=== PATIENT | female | born 1980 | race Caucasian/White ===

== ENCOUNTER 2021-10-07 12:47 | Emergency (ER) | payer MEDICARE, SELFPAY ==
--- NOTE | ~2021-10-07 | CT_ITS ---
EXAMINATION: CT abdomen pelvis w con DATE: 10/07/2021 14:59 INDICATION: LUQ pain TECHNIQUE: Computed tomography (CT) of the abdomen and pelvis was performed with 75 mL Omnipaque 300 intravenous contrast. Automated exposure control and iterative reconstruction technique were employed . The dose-length product was 876.47 mGy-cm. COMPARISON: None FINDINGS: Lower thorax: Unremarkable Liver: Normal. Biliary/Gallbladder: Gallbladder is normal. No bile duct dilation. Pancreas: No mass or duct dilation. Spleen: Normal. Adrenals:No mass. Kidneys: No mass, stone, or hydronephrosis. GI tract: No small or large bowel dilation. Normal appendix. Mesentery/Peritoneum: No ascites, mass, or free air. Retroperitoneum: No mass. Pelvis: Pelvic organs are within normal limits. Soft Tissues: Soft tissues and body wall unremarkable. Bones: No acute osseous finding. IMPRESSION: No acute abdominopelvic process. Reviewed, dictated and finalized at location K.
--- NOTE | ~2021-10-07 | XR_ITS ---
EXAMINATION: XR chest 2V 10/07/2021 13:41 INDICATION: Chest pain PROCEDURE: 2 view chest COMPARISON: No prior studies for comparison. FINDINGS: The lungs are clear. The cardiomediastinal silhouette is within normal limits. There are no pleural effusions. There is no pneumothorax suspected. IMPRESSION: 1: NO ACUTE CARDIOPULMONARY DISEASE. Reviewed, dictated and finalized at location A.
[2021-10-07 12:49] VITALS: BP 130/87; PULSE 88; RESP 18; TEMP 36.2; O2SAT 99
--- NOTE | 2021-10-07 12:49 | ECG_ITS ---
Measurements Intervals [place] Rate: 73 P: 49 [place]: 167 QRS: 0 QRSD: 84 T: 22 QT: 383 QTc: 423 Interpretive Statements SINUS RHYTHM LOW QRS VOLTAGE IN PRECORDIAL LEADS BORDERLINE R WAVE PROGRESSION, ANTERIOR LEADS BORDERLINE ECG Electronically Signed On 10-07-2021 13:06:50 CDT by Eliot Lynne D.O.
[2021-10-07 13:12] LABS: Basophils Percent Auto 0.1 % (0.2-1.2); Eosinophils Absolute Auto 0.1 K/mm3 (0-0.3); Eosinophils Percent Auto 1.7 % (0-4.4); Hematocrit 38.9 % (37.0-47.0); Hemoglobin 13.2 g/dL (12.0-15.0); Immature Granulocyte Absolute 0.01 K/mm3 (0.00-0.031); Immature Granulocyte Percent A 0.1 % (0-0.5); Lymphocytes Absolute Auto 1.85 K/mm3 (0.9-3.2); Lymphocytes Percent Auto 26.4 % (18.3-44.2); Mean Corpuscular HGB Conc 33.9 g/dl (32-36); Mean Corpuscular Hemoglobin 31.1 pg (26-34); Mean Corpuscular Volume 91.5 fl (80-100); Mean Platelet Volume 11.5 fl (7.4-10.4); Monocytes Absolute Auto 0.4 K/mm3 (0.1-0.6); Monocytes Percent Auto 6.3 % (2.6-8.5); Neutrophils Absolute Auto 4.6 K/mm3 (1.3-6.7); Neutrophils Percent Auto 65.4 % (45.5-73.1); Platelet Count Result 186 k/mm3 (150-375); Red Blood Count 4.25 M/mm3 (4.2-5.4)
[2021-10-07 13:21] LABS: Alanine Aminotransferase 77 U/L (6-35); Albumin Level 4.3 g/dL (3.5-5.1); Alkaline Phosphatase 74 U/L (38-126); Anion Gap -2 mmol/L (8-16); Aspartate Amino Transferase 64 U/L (14-36); Bilirubin,Total 0.3 mg/dL (0.2-1.3); Blood Urea Nitrogen 13 mg/dL (7-17); Carbon Dioxide 37 mmol/L (22-30); Chloride 102 mmol/L (98-107); Estimated CRCL calculation 101 ml/min; Estimated Glomerular Filt Rate > 60; Glucose 96 mg/dL (65-110); Lipase 85 U/L (23-300); Potassium 4.2 mmol/L (3.4-5.0); Sodium 137 mmol/L (137-145)
[2021-10-07 13:27] LABS: Partial Thromboplastin Time 26.2 SECONDS (22.3-36.8); Prothrombin Time 12.9 Seconds (11.1-14.7)
[2021-10-07 13:33] LABS: Troponin I < 0.012 ng/mL (0.000-0.034)
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
[2021-10-07 14:34] VITALS: BP 121/88; PULSE 68; PULSE 69; RESP 18; O2SAT 99
[2021-10-07] MEDS: PANTOPRAZOLE SODIUM IV 40 MG VIAL IV PUSH (14:35)
[2021-10-07] MEDS: SODIUM CHLORIDE 0.9% IV 1,000 ML 999 ML IV CONT (14:36)
[2021-10-07] MEDS: BELLADONNA ALK/PHENOB ELIX 10 ML, MAG HYDROX/ALUMINUM HYD/SIMETH 30 ML, LIDOCAINE HCL 2... PO (14:36)
[2021-10-07 14:44] LABS: D Dimer 0.29 ug/mL (<0.48)
[2021-10-07 15:41] VITALS: BP 118/73; PULSE 60; RESP 19; O2SAT 97
== END 2021-10-07 15:42 | disposition home or self-care (01) ==
PROVIDERS: Emergency Medicine; Emergency Provider Nurse Practitioner Family; PCP Physician Assistant
DX: M25.512 Pain in left shoulder (principal); K21.9 Gastro-esophageal reflux disease without esophagitis; R07.9 Chest pain, unspecified; R94.31 Abnormal electrocardiogram [ECG] [EKG]
CPT/HCPCS: 36415; 71046; 74177; 80053; 81025; 83690; 84443; 84484; 85025; 85380; 85610; 85730; 93005; 96361; 96374; 99284; A9270; C9113; J7030; Q9967

== ENCOUNTER 2022-02-11 15:16 | Emergency (ER) | payer MEDICARE, SELFPAY ==
[2022-02-11] VITALS (35 sets, daily range): BP systolic 96–124; BP diastolic 61–98; PULSE 62–82; RESP 9–28; TEMP 36.8; O2SAT 97–100
--- NOTE | ~2022-02-11 | XR_ITS ---
EXAMINATION: XR chest 2V 02/11/2022 15:47 INDICATION: Shortness of breath and chest pain PROCEDURE: 2 view chest COMPARISON: 10/07/2021 FINDINGS: The lungs are clear. The cardiomediastinal silhouette is within normal limits. There are no pleural effusions. There is no pneumothorax suspected. IMPRESSION: 1: NO ACUTE CARDIOPULMONARY DISEASE. Reviewed, dictated and finalized at location B.
--- NOTE | ~2022-02-11 | CT_ITS ---
EXAMINATION: CTA chest PE protocol DATE: 02/11/2022 17:51 INDICATION: Dyspnea. Positive d-dimer. TECHNIQUE: Computed tomography (CT) pulmonary angiogram of the chest was performed with 100 mL Omnipa que-350 intravenous contrast. Additional 3D reconstructions utilizing coronal maximum intensity proje ction (MIP) were performed. Automated exposure control and iterative reconstruction technique were em ployed. The dose-length product was 623.16 mGy-cm. COMPARISON: None FINDINGS: Excellent contrast opacification of the pulmonary arteries. There is mild streak artifact from dense contrast in the superior vena cava and right atrium. No significant motion artifact yielding diagnost ic quality study which demonstrates no pulmonary embolism. No pneumonia, pulmonary edema, pleural eff usion or pneumothorax. Heart size is normal. No pericardial effusion. Thoracic aorta is normal in heath iber with no dissection. No pathologically enlarged thoracic lymphadenopathy. There is some stranding and small amount of nonloculated peripancreatic fluid around body and tail the pancreas consistent w ith acute interstitial pancreatitis. Bones are unremarkable. IMPRESSION: 1. No pulmonary embolism or other acute cardiopulmonary disease. 2. Small amount of peripancreatic fluid and stranding consistent with acute interstitial pancreatitis . Correlate with amylase and lipase levels. Reviewed, dictated and finalized at location A. IMPRESSION: 1. No pulmonary embolism or other acute cardiopulmonary disease. 2. Small amount of peripancreatic fluid and stranding consistent with acute int erstitial pancreatitis. Correlate with amylase and lipase levels.
--- NOTE | 2022-02-11 15:26 | ECG_ITS ---
Rate 72 [place] 146 QRSd 81 QT 375 QTc 412 --[place]-- P 37 QRS 3 T 32 SINUS RHYTHM NORMAL ECG COMPARED TO ECG 10/07/2021 12:51:51 NO SIGNIFICANT CHANGES Electronically Signed On 02-13-2022 8:10:19 CDT by Eliot STONE
[2022-02-11 15:56] LABS: Basophils Absolute Auto 0.1 K/mm3 (0.0-0.1); Basophils Percent Auto 0.5 % (0.2-1.2); Eosinophils Absolute Auto 0.2 K/mm3 (0-0.3); Eosinophils Percent Auto 1.5 % (0-4.4); Hemoglobin 13.8 g/dL (12.0-15.0); Immature Granulocyte Absolute 0.29 K/mm3 (0.00-0.031); Immature Granulocyte Percent A 2.8 % (0-0.5); Lymphocytes Absolute Auto 4.06 K/mm3 (0.9-3.2); Lymphocytes Percent Auto 39.7 % (18.3-44.2); Mean Corpuscular HGB Conc 32.9 g/dl (32-36); Mean Corpuscular Hemoglobin 30.5 pg (26-34); Mean Corpuscular Volume 92.7 fl (80-100); Mean Platelet Volume 10.5 fl (7.4-10.4); Monocytes Absolute Auto 0.9 K/mm3 (0.1-0.6); Monocytes Percent Auto 8.5 % (2.6-8.5); Neutrophils Absolute Auto 4.8 K/mm3 (1.3-6.7); Platelet Count Result 244 k/mm3 (150-375); Red Blood Count 4.53 M/mm3 (4.2-5.4); Red Cell Distribution Width 13.5 % (11.5-14.5); White Blood Count 10.2 K/mm3 (4.5-10.0)
[2022-02-11 16:02] LABS: Alanine Aminotransferase 23 U/L (6-35); Alkaline Phosphatase 60 U/L (38-126); Anion Gap 11 mmol/L (8-16); Aspartate Amino Transferase 15 U/L (14-36); Bilirubin,Total 0.2 mg/dL (0.2-1.3); Blood Urea Nitrogen 25 mg/dL (7-17); Calcium 9.1 mg/dL (8.4-10.2); Carbon Dioxide 26 mmol/L (22-30); Chloride 102 mmol/L (98-107); Estimated Glomerular Filt Rate > 60; Glucose 76 mg/dL (65-110); Potassium 3.9 mmol/L (3.4-5.0); Sodium 139 mmol/L (137-145)
[2022-02-11] MEDS: KETOROLAC 30 MG/ML VIAL (*BKC) IV PUSH (16:05)
[2022-02-11] MEDS: FAMOTIDINE 20 MG/2 ML VIAL IV PUSH (16:06)
[2022-02-11] MEDS: SODIUM CHLORIDE 0.9% IV 1,000 ML 999 ML IV CONT ×2 (16:07→17:50)
[2022-02-11 16:16] LABS: Appearance Urine Slightly Cloudy (Clear); Bilirubin Urine Negative (Negative); Blood Urine Negative (Negative); Color Urine Yellow (Yellow); Glucose Urine UA Negative (Negative); Ketones Urine Negative (Negative); Leukocyte Esterase Ur Trace LEU/UL (Negative); Nitrate Urine Negative (Negative); Protein Urine Negative (Negative); Specific Grav Ur 1.025 (1.001-1.035); Urobilinogen Urine 0.2 mg/dL (<2.0)
[2022-02-11 16:28] LABS: Bacteria Urine Trace /hpf; Mucus Urine Rare /lpf; Squamous Epithelial Cell Urine Many /hpf (Few)
[2022-02-11 16:31] LABS: Add Urine Microscopic? YES
[2022-02-11 16:33] LABS: Partial Thromboplastin Time 21.2 SECONDS (22.3-36.8); Prothrombin Time 12.3 Seconds (11.1-14.7)
[2022-02-11 16:34] LABS: Lipase 122 U/L (23-300)
[2022-02-11 16:52] LABS: Troponin I < 0.012 ng/mL (0.000-0.034)
[2022-02-11 17:26] LABS: D Dimer 1.29 ug/mL (<0.48)
[2022-02-11] MEDS: LORazepam INJ (*CRX) 2 MG/ML VIAL 0.5 MG IV PUSH (18:10)
--- NOTE | 2022-02-11 18:44 | ED.GENADULT ---
HPI - General Adult General Chief complaint: Unspecified Stated complaint: there's something wrong Time Seen by Provider: 02/11/22 15:52 Source: RN notes reviewed History of Present Illness HPI narrative: Patient presents emergency department from home for multiple complaints. Patient states that she has been feeling generally weak as well as a feeling of short of breath. She states that with this she feels swollen throughout her body as well as like her it has been swollen she states that he was recently diagnosed with COVID-19 and just finished a course of Paxlovid dexamethasone yesterday she denies any fevers or chills she denies any chest pain she denies any abdominal pain but does states that she easily feels full and has some nausea she denies any vomiting or diarrhea Related Data Home Medications Medication Instructions Recorded Confirmed hydroxyzine HCl 10 mg tablet mg 02/11/22 Allergies Allergy/AdvReac Type Severity Reaction Status Date / Time No Known Allergies Allergy Verified 02/11/22 15:57 Review of Systems Review of Systems: Gen.: Denies fevers or chills Eyes: Denies eye pain or visual change ENT see HPI Respiratory: Reports shortness of breath CV: Denies chest pain or palpitation GI: Denies abdominal pain or diarrhea reports nausea Musculoskeletal: Denies back pain or muscle pain Neuro: Denies numbness, tingling, weakness or focal weakness Skin: Denies rash Except as documented, all other systems reviewed and negative PMF Past Medical History Medical History Anus irritation Hematochezia Hx of anxiety disorder Hx of diabetes mellitus Hx of gastroesophageal reflux (GERD) Hx of iron deficiency anemia Sensation of gaseous abdominal fullness Social History Social History Smoking packs per day: 1 Smoking cigarettes per day: 20.0 Years smoked: 27 Smoking pack-years: 27.00 Smoking status: Current every day smoker Tobacco type: cigarettes Alcohol intake: never Substance use: never Substance use type: does not use Spiritual care concerns: No Exam Narrative: APPEARANCE: No acute distress, nontoxic, resting in bed EYES: EOMI HEENT: Normocephalic, atraumatic, OMM no erythema or exudate posterior pharynx uvula midline no trismus tolerating own secretions voice normal RESPIRATORY: No respiratory distress Clear to auscultation bilaterally with no rhonchi wheezing or rales. CARDIOVASCULAR: Regular rate and rhythm without murmurs rubs or gallops. ABDOMINAL: Soft, nontender, nondistended, no rebound or guarding MUSCULOSKELETAl: Moves all extremities. No clubbing, cyanosis or edema. NEURO: Awake and alert x 4. Following commands, speech normal, no focal deficits SKIN:: Warm, dry. No rashes lesions or abrasions PSYCHIATRIC: Anxious in appearance normal affect/mood, Course Course Emergency Course: Following CT scan reevaluated the patient lipase and hepatic function panels within normal limits the abdomen is soft and nontender no tenderness epigastric region Discussed with Dr. Chappell presentation work-up at this time he feels that the patient may be discharged with antiemetics and follow-up in the office Discussed with patient results of workup and diagnosis. Discussed need for follow-up with primary care, proper use of medication, and reasons to return to the emergency department. Patient understands and agrees to current treatment plan Vital Signs Vital signs: Vital Signs Temperature 98.3 F 02/11/22 15:20 Pulse Rate 82 02/11/22 15:20 Respiratory Rate 16 02/11/22 15:20 Blood Pressure 108/75 02/11/22 15:20 Pulse Oximetry 100 02/11/22 15:20 Oxygen Delivery Room Air 02/11/22 15:20 Temperature 98.3 F 02/11/22 15:20 Pulse Rate 65 02/11/22 18:11 Respiratory Rate 15 02/11/22 18:11 Blood Pressure 124/80 02/11/22 18:11 Pulse Oximetry 100
[2022-02-11] MEDS: NITROFURANTOIN MONOHYD MACROCR 100 MG CAP PO (19:08)
--- NOTE | 2022-02-11 19:14 | PC.NURSE ---
Patient report received from ROBYN Hanna. All questions answered and care of patient assumed.
== END 2022-02-11 19:24 | disposition home or self-care (01) ==
PROVIDERS: Emergency Provider Emergency Medicine; PCP Physician Assistant
DX: R06.00 Dyspnea, unspecified (principal); N39.0 Urinary tract infection, site not specified; F41.9 Anxiety disorder, unspecified; R06.02 Shortness of breath; F17.210 Nicotine dependence, cigarettes, uncomplicated; E11.9 Type 2 diabetes mellitus without complications; K21.9 Gastro-esophageal reflux disease without esophagitis
CPT/HCPCS: 36415; 71046; 71275; 80053; 81001; 81025; 83690; 83735; 84484; 85025; 85380; 85610; 85730; 93005; 96361; 96374; 96375; 99284; A9270; J1885; J2060; J7030; Q9967

== ENCOUNTER 2022-03-31 00:39 | Day surgery (SDC) | payer MEDICARE, SELFPAY ==
[2022-01-27 10:49] VITALS: BMI 34.5
--- NOTE | 2022-02-13 10:11 | SUR.PREOP ---
Multiple messages left- patient did not answer phone call.
[2022-03-20 14:35] VITALS: BMI 34.5
[2022-03-31 12:24] VITALS: BP 126/78; PULSE 105; RESP 16; TEMP 36.3; O2SAT 100
[2022-03-31] MEDS: LACTATED RINGERS 1,000 ML 150 ML IV CONT (12:34)
--- NOTE | 2022-03-31 12:45 | WPDANESEPPF ---
Anes - Initial Pre Proc Eval Procedure: Operation Date: 03/31/22 13:30 Proposed Procedures p Esophagogastroduodenoscopy & Colonoscopy - Dallin Funes MD Date/Time: 03/31/22 12:45 Surgeon: Dallin Funes MD Pre Op Diagnosis: melena, GERD Patient Data Age: 42 Gender: F Height: 1.7 m Weight: 96 kg Last Vital Signs Temp 97.3 F L 03/31/22 12:24 Pulse 105 H 03/31/22 12:24 Resp 16 03/31/22 12:24 BP 126/78 03/31/22 12:24 Pulse Ox 100 03/31/22 12:24 O2 Del Method Room Air 03/31/22 12:24 Allergies Allergy/AdvReac Type Severity Reaction Status Date / Time No Known Allergies Allergy Verified 03/31/22 12:22 Home Medications Medication Instructions Recorded Confirmed Type hydroxyzine HCl 10 mg tablet 10 mg PO PRN PRN Anxiety 02/11/22 03/31/22 History ondansetron 4 mg disintegrating 4 mg PO Q6H PRN nausea and 02/11/22 03/31/22 Rx tablet vomiting #10 tabs Patient hx anesthesia problems: none Family hx anesthesia problems: none Results Review: All pre-operative results and documents have been reviewed as part of the pre-operative evaluation. [facility] Past Medical History Medical History Anus irritation Hematochezia Hx of anxiety disorder Hx of diabetes mellitus Hx of gastroesophageal reflux (GERD) Hx of iron deficiency anemia Sensation of gaseous abdominal fullness Social History Social History Smoking packs per day: 1 Smoking cigarettes per day: 20.0 Years smoked: 27 Smoking pack-years: 27.00 Smoking status: Current every day smoker Tobacco type: cigarettes Alcohol intake: never Substance use: never Substance use type: does not use Living arrangements: with family Anes - Eval Final PreProcedure Day of Procedure 03/31/22 12:45 Patient weight: obese Heart: regular rate and rhythm Lungs: clear to auscultation Airway: Mallampati scale class II Neurological: alert and oriented Last oral intake: >/= 8 hours ASA classification: II Emergent: no Anesthetic plan: proceed Anesthesia type and monitoring: general GIVS and standard monitoring Results Review: All pre-operative results and documents have been reviewed as part of the pre-operative evaluation. Informed Consent: The patient's anesthetic plan and its attendant risks and benefits were discussed with the patient/family/POA. Questions were solicited and answers provided to the satisfaction of the patient/family/POA.
--- NOTE | 2022-03-31 12:52 | PM.HPGS ---
History of Present Illness History of Present Illness Consent: Risks, benefits, and alternatives have been discussed and questions answered. Patient agrees to proceed with procedure. Chief complaint: melena, GERD Narrative: Evie Munson is a 42 year old female with intermittent non cardiac CP when she came to see me at the office but now doing ok, also same sensation of lump in anus Review of Systems Constitutional: Constitutional: Denies headache(s) and Denies weakness Eyes: Eyes: Denies blurry vision ENT: Reports Normal hearing present, Denies headache(s) and Denies neck pain Cardiovascular: Cardiovascular: Denies chest pain and Denies dyspnea Respiratory: Respiratory: Denies dyspnea Gastrointestinal: Gastrointestinal: Reports no additional gastrointestinal complaints Genitourinary: Genitourinary: Denies dysuria Musculoskeletal: Musculoskeletal: Denies neck pain Integumentary/Breasts: Skin/Breast: Denies dry skin Neurologic: Reports Normal hearing present, Denies headache(s) and Denies weakness Psychiatric: Psychiatric: Denies anxiety Endocrine: Endocrine: Denies change in body appearance Hematologic/Lymphatic: Hematologic/Lymphatic: Denies easy bleeding Allergic/Immunologic: Allergic/Immunologic: Denies urticaria PMFSH Past Medical History Medical History (Updated 03/31/22 @ 12:52 by Dallin Funes MD) Anus irritation Hematochezia Hx of anxiety disorder Hx of diabetes mellitus Hx of gastroesophageal reflux (GERD) Hx of iron deficiency anemia Non-cardiac chest pain Sensation of gaseous abdominal fullness Social History Social History Smoking packs per day: 1 Smoking cigarettes per day: 20.0 Years smoked: 27 Smoking pack-years: 27.00 Smoking status: Current every day smoker Tobacco type: cigarettes Alcohol intake: never Substance use: never Substance use type: does not use Living arrangements: with family Meds Home Medications and Allergies Home Medications Medication Instructions Recorded Confirmed Type hydroxyzine HCl 10 mg tablet 10 mg PO PRN PRN Anxiety 02/11/22 03/31/22 History ondansetron 4 mg disintegrating 4 mg PO Q6H PRN nausea and 02/11/22 03/31/22 Rx tablet vomiting #10 tabs Allergies Allergy/AdvReac Type Severity Reaction Status Date / Time No Known Allergies Allergy Verified 03/31/22 12:22 Vital Signs Vital Signs - 24 hr 03/31/22 12:24 Temperature 97.3 F L Pulse Rate 105 H Respiratory Rate 16 Blood Pressure 126/78 Pulse Oximetry 100 Oxygen Delivery Room Air Exam Const: General: comfortable and no acute distress HENMT: Face/Nose/Sinus: Normal nares present Eyes: General: appearance normal, both eyes and all related structures Neck: Neck: no JVD Resp: Auscultation: clear to auscultation bilaterally Cardio: Rate: regular rate Rhythm: regular rhythm GI: Inspection: non-distended GI Palp: Yes Soft to palpation Skin: General skin exam: normal color Neuro: General: gait normal Speech: normal speech Extrem: General: normal to inspection Psych: Mental Status: mental status grossly normal Assessment and Plan Assessment and plan (1) Anus irritation: Code(s): K62.89 - Other specified diseases of anus and rectum Status: Acute Assessment and Plan: colonoscopy (2) Non-cardiac chest pain: Code(s): R07.89 - Other chest pain Status: Acute Assessment and Plan: egd with bx
[2022-03-31 13:14] VITALS: BP 106/68; PULSE 85; RESP 22; O2SAT 99
--- NOTE | 2022-03-31 13:17 | SUR.OPER ---
EGD START 1256, END 1259 COLONOSCOPY START 1304, END 1313
[2022-03-31 13:24] VITALS: BP 96/56; PULSE 71; RESP 18; O2SAT 98
[2022-03-31 13:34] VITALS: BP 98/69; PULSE 78; RESP 25; O2SAT 100
== END 2022-03-31 13:53 | disposition home or self-care (01) ==
PROVIDERS: PCP Physician Assistant; Visit Provider Internal Medicine Gastroenterology
PROC: 0DJ08ZZ Inspection of Upper Intestinal Tract, Via Natural or Artificial Opening Endoscopic (ICD-10-PCS; CPT 43235; principal; 2022-03-31 13:30)
DX: K62.89 Other specified diseases of anus and rectum (principal); R14.3 Flatulence; K64.8 Other hemorrhoids; K64.4 Residual hemorrhoidal skin tags; R07.89 Other chest pain; F17.210 Nicotine dependence, cigarettes, uncomplicated; E66.9 Obesity, unspecified; Z68.33 Body mass index [BMI] 33.0-33.9, adult
CPT/HCPCS: 45378; 43239; 88305; J2704; J7120

== ENCOUNTER 2024-07-29 11:33 | Emergency (ER) | payer MEDICARE, SELFPAY ==
--- NOTE | ~2024-07-29 | CT_ITS ---
EXAMINATION: CTA chest PE abdomen pel DATE: 07/29/2024 17:16 INDICATION: co, back pain, abd pain, vomiting TECHNIQUE: Computed tomography angiography (CTA) of the chest was performed with 100 mL Omnipaque-350 intravenous contrast timed to evaluate the pulmonary arteries, followed by portal venous phase imagi ng of the abdomen and pelvis. Coronal maximum intensity projection 3D-reconstructions were created by the technologist. The dose-length product (DLP) was 911.89 mGy-cm. Automated exposure control and it erative reconstruction technique were employed. COMPARISON: CTPA 02/11/2022, CT abdomen pelvis 10/07/2021. FINDINGS: CHEST: Lung parenchyma and airways: Clear. Pleura: Unremarkable. Thoracic inlet, axillae and chest wall: No thyroid or soft tissue mass. Thoracic aorta: No significant dilation. No dissection. Mediastinum: Normal. Heart and pericardium: Normal. Coronary artery calcifications: Absent. Thoracic bones: No acute osseous finding. Pulmonary arteries: Study quality: Mild motion artifact. Borderline contrast bolus (222HU), overall d iagnostic. No pulmonary emboli detected. ABDOMEN/PELVIS: Liver: Normal. Biliary/Gallbladder: Gallbladder is normal. No bile duct dilation. Pancreas: No mass or duct dilation. Spleen: Normal. Adrenals:No mass. Kidneys: No suspicious mass, obstructing stone, or hydronephrosis. GI tract: Mild distal esophageal and antral wall edema. No small or large bowel dilation. Normal appe ndix. Mesentery/Peritoneum: No ascites, mass, or free air. Retroperitoneum: No mass. Pelvis: Pelvic organs are within normal limits. Soft Tissues: Soft tissues and body wall unremarkable. Abdominopelvic bones: No acute osseous finding. IMPRESSION: No CT evidence of acute pulmonary embolus. No acute process detected in the chest. Mild esophagitis and antral gastritis. Reviewed, dictated and finalized at location K.
--- NOTE | ~2024-07-29 | XR_ITS ---
EXAMINATION: XR chest 2V Exam Date/Time: 07/29/2024 14:20 CDT HISTORY: CP Comparison: 02/11/2022. RESULT: Lines, tubes, and devices: None. Lungs and pleura: Clear. Cardiomediastinal silhouette: Stable. Other: No acute osseous or upper abdominal finding. IMPRESSION: No acute cardiopulmonary process. Reviewed, dictated and finalized at location K.
--- OUTSIDE RECORDS SUMMARY | 2024-07-29 11:35 | XMS_ITS | CONTINUITY OF CARE DOCUMENT ---
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
--- NOTE | 2024-07-29 12:04 | ECG_ITS ---
Test Date: 2024-07-29 12:12:12 Measurements Intervals [place] Rate: 65 P: -17 PA: 143 QRS: 10 QRSD: 73 T: 25 QT: 407 QTc: 424 Interpretive Statements SINUS RHYTHM LOW QRS VOLTAGE IN PRECORDIAL LEADS Electronically Signed On 07-30-2024 13:58:04 CDT by Mulugeta Mejia D.O
--- NOTE | 2024-07-29 14:35 | ED_ITS ---
HPI - Nausea/Vomiting/Diarrhea General Chief complaint: Nausea/Vomiting/Diarrhea Stated complaint: NV, chest pain, body Ache Time Seen by Provider: 07/29/24 14:09 Source: patient Mode of arrival: EMS Limitations: no limitations History of Present Illness HPI Narrative: This is a 44 year old female that presents to the ER for multiple complaints. Ongoing for over a year. Reports chest pain, shoulder pain, neck pain, arm pain, nausea, vomiting. Reports itchy rash. Reports a lot of stress. Reports she has been put on anxiety medication for her complaints, but she does not like the way it makes her feel. Related Data Home Medications ?Medication ?Instructions ?Recorded ?Confirmed ?Last Taken ?Type hydroxyzine HCl 10 mg tablet 10 mg PO PRN PRN Anxiety 02/11/22 03/31/22 Unknown History Allergies Allergy/AdvReac Type Severity Reaction Status Date / Time No Known Allergies Allergy Verified 03/31/22 12:22 Review of Systems 2 Review of Systems: All systems reviewed & are unremarkable except as noted in HPI and below PMFSH Past Medical History Medical History (Updated 07/29/24 @ 18:04 by Falguni Fraire PA-C) Non-cardiac chest pain Hematochezia Anus irritation Sensation of gaseous abdominal fullness Hx of diabetes mellitus Hx of anxiety disorder Hx of gastroesophageal reflux (GERD) Hx of iron deficiency anemia Social History Social History Smoking packs per day: 1 Smoking cigarettes per day: 20.0 Years smoked: 27 Smoking pack-years: 27.00 Smoking status: Current every day smoker Tobacco type: cigarettes Alcohol intake: never Substance use: never Substance use type: does not use Living arrangements: with family Exam 2 Narrative: GENERAL: Well-appearing, well-nourished, and in no acute distress. HEAD: Normocephalic, atraumatic. EYES: PERRLA and EOMI. ENT: Nares clear, no rhinorrhea or epistaxis. Mucous membranes moist. Oropharynx without tonsillar hypertrophy exudate or other lesions. NECK: Supple. No adenopathy or masses. CHEST: Clear to auscultation. No respiratory distress. No wheezes rales or rhonchi HEART: Regular rate and rhythm. No murmur heard. Normal peripheral pulses. EXTREMITIES: Normal range of motion. No edema. SKIN: Warm, dry, no rash. NEURO: No focal deficits. Alert and oriented x3. PSYCH: Normal mood and affect Course Course Emergency Course: Patient updated on her workup and agrees with plan of care Vital Signs Vital signs: Vital Signs Temperature 98 F 07/29/24 15:02 Pulse Rate 71 07/29/24 15:02 Respiratory Rate 16 07/29/24 15:02 Blood Pressure 119/84 07/29/24 15:02 Pulse Oximetry 99 07/29/24 15:02 Temperature 98 F 07/29/24 15:02 Pulse Rate 66 07/29/24 16:31 Respiratory Rate 19 07/29/24 16:31 Blood Pressure 123/78 07/29/24 16:31 Pulse Oximetry 98 07/29/24 16:31 MDM - Nausea/Vomiting/Diarrhea MDM Narrative Medical decision making narrative: Patient presents to the emergency department with multiple complaints that have been ongoing for a while. She is afebrile nontoxic appearing. Her vitals are stable. Cbc without leukocytosis. Metabolic panel some evidence of dehydration. Patient hydrated with a L of IV fluids in the ED. test is negative. Influenza, RSV and COVID screens are negative. EKG without concerning changes in baseline troponin is negative. D-dimer elevated, CTA of the chest PE with abdomen pelvis obtained. This shows esophagitis/gastritis. No acute process in the chest. Patient updated on her workup and agrees with plan of care. He is to follow up with provider. He was given warnings to return to the ER Differential Diagnosis Differential diagnosis: Likely food poisoning, gastroenteritis, dehydration and other (PE, pneumonia, electrolyte derangement, COVID, influenza, GERD, gastritis, esophagitis) Lab Data Attestation: I reviewed the patient's lab results. 07/29/24 15:02 07/29/24 15:02 Labs: Lab Results 07/29/24 07/29/24 07/29/24 Range/Units 15:02 16:30 16:32 WBC 7.2 (4.5-10.0) K/mm3 RBC 4.45 (4.2-5.4) M/mm3 Hgb 13.8 (12.0-15.0) g/dL Hct 41.3 (37.0-47.0) % MCV 92.8 (80-100) fl MCH 31.0 (26-34) pg MCHC 33.4 (32-36) g/dl RDW 13.5 (11.5-14.5) % Plt Count 218 (150-375) k/mm3 MPV 10.3 (7.4-10.4) fl Immature Gran % (Auto) 0.3 (0-0.5) % Neut % (Auto) 62.7 (45.5-73.1) % Lymph % (Auto) 30.1 (18.3-44.2) % [place] % (Auto) 5.4 (2.6-8.5) % Eos % (Auto) 1.4 (0-4.4) % Baso % (Auto) 0.1 L (0.2-1.2) % Lymph # (Auto) 2.17 (0.9-3.2) K/mm3 [place] # (Auto) 0.4 (0.1-0.6) K/mm3 Eos # (Auto) 0.1 (0-0.3) K/mm3 Baso # (Auto) 0.0 (0.0-0.1) K/mm3 Abs Immat Gran (auto) 0.02 (0.00-0.031) K/mm3 Absolute Neuts (auto) 4.5 (1.3-6.7) K/mm3 Absolute Nucleated RBC 0.000 (0.0-0.012) K/mm3 Nucleated RBC % 0.0 (0.0-0.2) % PT 14.1 (11.1-14.7) Seconds INR 1.0 APTT 25.1 (22.3-36.8) Seconds D-Dimer 0.97 H (<0.48) ug/mL Sodium 142 (137-145) mmol/L Potassium 4.3 (3.4-5.0) mmol/L Chloride 108 H (98-107) mmol/L Carbon Dioxide 18 L (22-30) mmol/L Anion Gap 16 H (4-12) mmol/L BUN 18 H (7-17) mg/dL Creatinine 0.68 L (0.7-1.0) mg/dL Estim Creat Clear Calc Not Reportable Estimated GFR > 60 (59 - ) Glucose 84 (65-110) mg/dL Calcium 9.2 (8.4-10.2) mg/dL Total Bilirubin 0.6 (0.2-1.3) mg/dL AST 27 (14-36) U/L ALT 28 (6-35) U/L Alkaline Phosphatase 81 (38-126) U/L Troponin I < 0.012 (0.000-0.034) ng/mL Total Protein 8.0 (6.3-8.2) g/dL Albumin 4.8 (3.5-5.1) g/dL Lipase 44 (23-300) U/L POC Urine HCG, Qual Negative (Negative) Urine Opiates Screen Negative (Negative) Urine Methadone Screen Negative (Negative) Ur Barbiturates Screen Negative (Negative) Ur Phencyclidine Scrn Negative (Negative) Ur Amphetamine Screen Negative (Negative) U Benzodiazepines Scrn Positive A (Negative) Urine Cocaine Screen Negative (Negative) U Cannabinoids Screen Positive A (Negative) Influenza A (RT-PCR) Negative (Negative) Influenza B (RT-PCR) Negative (Negative) RSV (RT-PCR) Negative (Negative) SARS-CoV-2 RNA (RT-PCR) Negative (Negative) 07/29/24 Range/Units 17:21 WBC (4.5-10.0) K/mm3 RBC (4.2-5.4) M/mm3 Hgb (12.0-15.0) g/dL Hct (37.0-47.0) % MCV (80-100) fl MCH (26-34) pg MCHC (32-36) g/dl RDW (11.5-14.5) % Plt Count (150-375) k/mm3 MPV (7.4-10.4) fl Immature Gran % (Auto) (0-0.5) % Neut % (Auto) (45.5-73.1) % Lymph % (Auto) (18.3-44.2) % [place] % (Auto) (2.6-8.5) % Eos % (Auto) (0-4.4) % Baso % (Auto) (0.2-1.2) % Lymph # (Auto) (0.9-3.2) K/mm3 [place] # (Auto) (0.1-0.6) K/mm3 Eos # (Auto) (0-0.3) K/mm3 Baso # (Auto) (0.0-0.1) K/mm3 Abs Immat Gran (auto) (0.00-0.031) K/mm3 Absolute Neuts (auto) (1.3-6.7) K/mm3 Absolute Nucleated RBC (0.0-0.012) K/mm3 Nucleated RBC % (0.0-0.2) % PT (11.1-14.7) Seconds INR APTT (22.3-36.8) Seconds D-Dimer (<0.48) ug/mL Sodium (137-145) mmol/L Potassium (3.4-5.0) mmol/L Chloride (98-107) mmol/L Carbon Dioxide (22-30) mmol/L Anion Gap (4-12) mmol/L BUN (7-17) mg/dL Creatinine (0.7-1.0) mg/dL Estim Creat Clear Calc Estimated GFR (59 - ) Glucose (65-110) mg/dL Calcium (8.4-10.2) mg/dL Total Bilirubin (0.2-1.3) mg/dL AST (14-36) U/L ALT (6-35) U/L Alkaline Phosphatase (38-126) U/L Troponin I < 0.012 (0.000-0.034) ng/mL Total Protein (6.3-8.2) g/dL Albumin (3.5-5.1) g/dL Lipase (23-300) U/L POC Urine HCG, Qual (Negative) Urine Opiates Screen (Negative) Urine Methadone Screen (Negative) Ur Barbiturates Screen (Negative) Ur Phencyclidine Scrn (Negative) Ur Amphetamine Screen (Negative) U Benzodiazepines Scrn (Negative) Urine Cocaine Screen (Negative) U Cannabinoids Screen (Negative) Influenza A (RT-PCR) (Negative) Influenza B (RT-PCR) (Negative) RSV (RT-PCR) (Negative) SARS-CoV-2 RNA (RT-PCR) (Negative) Imaging Data Radiologist's impression: ITS Impressions Chest X-Ray 07/29/24 15:02 IMPRESSION: No acute cardiopulmonary process. Chest/Abdomen/Pelvis CTA 07/29/24 17:28 IMPRESSION: No CT evidence of acute pulmonary embolus. No acute process detected in the chest. Mild esophagitis and antral gastritis. ECG Data EKG #1: ECG completion date: 07/29/24 EKG Interpretation: normal rate, sinus rhythm, no ST changes and normal QT Critical Care Time Critical Care Time Critical Care Time: No Discharge Plan Discharge Clinical Impression: Atypical chest pain, Dehydration Gastritis Qualifiers: Gastritis type: unspecified gastritis Chronicity: acute Gastritis bleeding: w ithout bleeding Qualified Code(s): K29.00 - Acute gastritis without bleeding Patient Disposition: Home, Self-Care Condition: Stable Instructions: Chest Pain (ED), Gastritis (ED), Dehydration (ED) Additional Instructions: Return to the emergency department if you experience fever, worsening chest pain, shortness of breath, abdominal pain with nausea and vomiting, weakness, numbness, or any other symptoms that are concerning to you. Remain well hydrated. Avoid spicy/acidic foods. Avoid alcohol. Avoid eating before bedtime. Avoid anti-inflammatories (Aleve, Ibuprofen, naproxen, etc). Take pantoprazole as prescribed Follow up with your primary care doctor Patient Language: Portuguese Prescriptions: New pantoprazole 40 mg tablet,delayed release (DR/EC) 40 mg PO HS 28 Days Qty: 28 0RF No Action hydroxyzine HCl 10 mg tablet 10 mg PO PRN PRN (Reason: Anxiety) ondansetron 4 mg tablet,disintegrating 4 mg PO Q6H PRN (Reason: nausea and vomiting) Qty: 10 0RF Follow-up/Referrals: Patrick,GLENIS Flores [Non-Staff] -
--- OUTSIDE RECORDS SUMMARY | 2024-07-29 14:37 | XMS_ITS | CONTINUITY OF CARE DOCUMENT ---
Author Name jose keenadavid Address Unknown Organization [facility] Address [address] [place] [id number] Phone [phone] Care Team Providers Care Derrick Barge Operator Name Role Phone Bhargavi Villanueva MD Unavailable VIDHYA DUVALL Unavailable [phone] VIDHYA DUVALL Unavailable [phone] INSURANCE PROVIDERS Payer name Policy type / Coverage type [place] [employer] green party ID [facility] [id number]
[2024-07-29 15:02] VITALS: BP 119/84; PULSE 71; RESP 16; TEMP 36.6; O2SAT 99
[2024-07-29] MEDS: FAMOTIDINE 20 MG/2 ML VIAL IV PUSH (15:07)
[2024-07-29] MEDS: ACETAMINOPHEN 500 MG TABLET 1000 MG PO (15:07)
[2024-07-29] MEDS: diphenhydrAMINE HCl CAP 25 MG CAPSULE PO (15:08)
[2024-07-29 15:09] LABS: Basophils Percent Auto 0.1 % (0.2-1.2); Eosinophils Absolute Auto 0.1 K/mm3 (0-0.3); Eosinophils Percent Auto 1.4 % (0-4.4); Hematocrit 41.3 % (37.0-47.0); Hemoglobin 13.8 g/dL (12.0-15.0); Immature Granulocyte Absolute 0.02 K/mm3 (0.00-0.031); Immature Granulocyte Percent A 0.3 % (0-0.5); Lymphocytes Absolute Auto 2.17 K/mm3 (0.9-3.2); Lymphocytes Percent Auto 30.1 % (18.3-44.2); Mean Corpuscular HGB Conc 33.4 g/dl (32-36); Mean Corpuscular Volume 92.8 fl (80-100); Mean Platelet Volume 10.3 fl (7.4-10.4); Monocytes Absolute Auto 0.4 K/mm3 (0.1-0.6); Monocytes Percent Auto 5.4 % (2.6-8.5); Neutrophils Absolute Auto 4.5 K/mm3 (1.3-6.7); Neutrophils Percent Auto 62.7 % (45.5-73.1); Platelet Count Result 218 k/mm3 (150-375); Red Blood Count 4.45 M/mm3 (4.2-5.4); Red Cell Distribution Width 13.5 % (11.5-14.5); White Blood Count 7.2 K/mm3 (4.5-10.0)
[2024-07-29] MEDS: diazePAM INJ (*CRX) 10 MG/2 ML SYRINGE 5 MG IV PUSH (15:11)
[2024-07-29] MEDS: IPRATROPIUM 0.5 MG/ALBUTEROL SULFATE 2.5 MG AMPUL.NEB 3 ML INHALATION (15:16)
[2024-07-29 15:18] VITALS: PULSE 67; RESP 16
[2024-07-29 15:18] LABS: Alanine Aminotransferase 28 U/L (6-35); Albumin Level 4.8 g/dL (3.5-5.1); Alkaline Phosphatase 81 U/L (38-126); Anion Gap 16 mmol/L (4-12); Aspartate Amino Transferase 27 U/L (14-36); Bilirubin,Total 0.6 mg/dL (0.2-1.3); Blood Urea Nitrogen 18 mg/dL (7-17); Calcium 9.2 mg/dL (8.4-10.2); Carbon Dioxide 18 mmol/L (22-30); Chloride 108 mmol/L (98-107); Estimated Glomerular Filt Rate > 60; Glucose 84 mg/dL (65-110); Lipase 44 U/L (23-300); Potassium 4.3 mmol/L (3.4-5.0); Sodium 142 mmol/L (137-145)
[2024-07-29 15:26] LABS: Prothrombin Time 14.1 Seconds (11.1-14.7)
[2024-07-29 15:27] VITALS: PULSE 74; RESP 16
[2024-07-29 15:27] LABS: Partial Thromboplastin Time 25.1 Seconds (22.3-36.8)
[2024-07-29 15:30] LABS: Troponin I < 0.012 ng/mL (0.000-0.034)
[2024-07-29 15:31] LABS: D Dimer 0.97 ug/mL (<0.48)
[2024-07-29 15:45] LABS: Influenza A QL RT-PCR Negative (Negative); Influenza B QL RT-PCR Negative (Negative); RSV RNA, RT-PCR Negative (Negative); SARS-CoV-2 RNA PCR Negative (Negative)
[2024-07-29] MEDS: methylPREDNISolone SOD SUCC 125 MG VIAL IV PUSH (15:51)
[2024-07-29 15:52] VITALS: BP 121/72; PULSE 72; RESP 20; O2SAT 98
[2024-07-29] MEDS: SODIUM CHLORIDE 0.9% IV 1,000 ML 999 ML IV CONT (15:52)
[2024-07-29 16:31] VITALS: BP 123/78; PULSE 66; RESP 19; O2SAT 98
[2024-07-29 16:37] LABS: BEDSIDEPREGUCG Negative (Negative)
--- NOTE | 2024-07-29 16:48 | PC.NURSE ---
Pt. continuously reminded to keep her arm straight so that fluids can infuse.
[2024-07-29 16:55] LABS: Amphetamine Screen Urine Negative (Negative); Barbiturate Screen Urine Negative (Negative); Benzodiazepines Screen Urine Positive (Negative); Cannabinoid Screen Urine Positive (Negative); Cocaine Screen Urine Negative (Negative); Methadone Screen Urine Negative (Negative); Opiate Screen Urine Negative (Negative); Phencyclidine Screen Urine Negative (Negative)
[2024-07-29 17:46] LABS: Troponin I < 0.012 ng/mL (0.000-0.034)
== END 2024-07-29 19:32 | disposition home or self-care (01) ==
PROVIDERS: Emergency Medicine; Emergency Provider Physician Assistant
DX: R07.89 Other chest pain (principal); K29.00 Acute gastritis without bleeding; E86.0 Dehydration; Z20.822 Contact with and (suspected) exposure to COVID-19; E11.9 Type 2 diabetes mellitus without complications; F41.9 Anxiety disorder, unspecified; K21.9 Gastro-esophageal reflux disease without esophagitis; F17.210 Nicotine dependence, cigarettes, uncomplicated; Z86.2 Personal history of diseases of the blood and blood-forming organs and certain disorders involving the immune mechanism; Z79.899 Other long term (current) drug therapy
CPT/HCPCS: 36415; 71046; 71275; 74177; 80053; 80307; 81025; 83690; 84484; 85025; 85380; 85610; 85730; 87637; 93005; 94640; 96361; 96374; 96375; 99284; A9270; J2919; J3360; J7030; Q9967